=== PATIENT | female | born 1955 | race Caucasian/White ===

== ENCOUNTER 2018-12-28 17:01 | Inpatient (IN) | payer OTHER ==
[2018-12-28] MEDS: SODIUM CHLORIDE 0.9% 1L BAG IV* (17:39)
[2018-12-28] MEDS: ONDANSETRON 4 MG INJ IV (17:43)
[2018-12-28] MEDS: morphine 4 MG/ML VIAL IV (17:43)
[2018-12-28] MEDS: KETOROLAC 15 MG INJ IV (17:43)
[2018-12-28] MEDS: ACETAMINOPHEN 325 MG TAB PO (17:45)
[2018-12-28] MEDS: CEFTRIAXONE 1 GM/50 ML (PMX) 50 ML IVPB (17:45)
[2018-12-28 17:47] LABS: WHITE BLOOD COUNT 8.5 10^3/ul (4.8-10.8)
[2018-12-28 17:47] LABS: HEMATOCRIT 38.3 % (37.0-47.0); HEMOGLOBIN 11.9 g/dl (12.0-16.0); MEAN CORPUSCULAR HEMOGLOBIN 23.2 pg (29.0-33.0); MEAN CORPUSCULAR HGB CONC 31.1 g/dl (32.0-37.0); MEAN CORPUSCULAR VOLUME 74.5 fl (82.0-101.0); MEAN PLATELET VOLUME 10.3 fl (7.4-10.4); PLATELET COUNT 354 10^3/UL (140-415); RED BLOOD COUNT 5.14 10^6/ul (4.20-5.40)
[2018-12-28 17:59] LABS: ADD MAN DIFF? YES; POSITIVE DIFF @See below
[2018-12-28 18:09] LABS: ALANINE AMINOTRANSFERASE 17 IU/L (13-69); ALBUMIN 3.8 g/dl (3.3-4.9); ALKALINE PHOSPHATASE 231 IU/L (42-121); ANION GAP 12 (5-13); ASPARTATE AMINO TRANSFERASE 38 IU/L (15-46); BLOOD UREA NITROGEN 14 mg/dl (7-20); CALCIUM 9.1 mg/dl (8.4-10.2); CARBON DIOXIDE 22 mmol/L (21-31); CHLORIDE 100 mmol/L (97-110); CREATININE 0.97 mg/dl (0.44-1.00); Estimated GFR 58 mL/min (>60); GLUCOSE 151 mg/dl (70-220); INR 1.08; POTASSIUM 4.3 mmol/L (3.5-5.1); PROTIME 14.1 Sec (11.9-14.9); PT RATIO 1.1; SODIUM 134 mmol/L (135-144); TOTAL PROTEIN 7.6 g/dl (6.1-8.1)
[2018-12-28 18:10] LABS: PARTIAL THROMBOPLASTIN TIME 28.2 Sec (23.0-35.0)
[2018-12-28 18:18] LABS: TROPONIN-I < 0.012 ng/ml (0.000-0.120)
[2018-12-28 18:38] LABS: ANISOCYTOSIS 2+ (0-0); BAND NEUTROPHILS #M 1.2 10^3/ul (0.0-0.6); BAND NEUTROPHILS % (M) 15 % (0-4); LYMPHOCYTES #M 0.6 10^3/ul (0.8-2.9); LYMPHOCYTES % (M) 8 % (15-51); MICROCYTOSIS 2+ (0-0); PLATELET ESTIMATE NORMAL; POLYCHROMASIA 1+ (0-0); PROMYELOCYTES % (M) 1 % (0-0); SEG NEUT #M 6.6 10^3/ul (1.6-7.5); SEGMENTED NEUTROPHILS (M) % 76 % (39-77)
[2018-12-28] MEDS ORDERED: ONDANSETRON 4 MG INJ IV ×2 (19:00→20:00)
[2018-12-28] MEDS: SOD CHLORIDE 0.9% 1,000 ML IV (19:45)
[2018-12-28] MEDS ORDERED: ZOLPIDEM 5 MG TAB PO (20:00)
[2018-12-28 20:30] LABS: LACTIC ACID 0.9 mmol/L (0.5-2.0)
[2018-12-28] MEDS: LEVOFLOXACIN 500 MG TAB PO (21:20)
[2018-12-29] MEDS: ACETAMINOPHEN 325 MG TAB PO ×4 (00:21→22:24)
[2018-12-29 06:26] LABS: ADD UMIC YES; UR AMORPHOUS CRYSTAL FEW /HPF (NONE SEEN); UR ASCORBIC ACID NEGATIVE (NEGATIVE); UR BACTERIA FEW /HPF (NONE SEEN); UR BILIRUBIN (Dip) NEGATIVE (NEGATIVE); UR BLOOD (Dip) 2+ mg/dL (NEGATIVE); UR CLARITY CLOUDY (CLEAR); UR COLOR YELLOW (YELLOW); UR GLUCOSE (Dip) NEGATIVE (NEGATIVE); UR KETONES (Dip) NEGATIVE (NEGATIVE); UR LEUKOCYTE ESTERASE (Dip) 3+ Leu/ul (NEGATIVE); UR NITRITE (Dip) NEGATIVE (NEGATIVE); UR NONSQUAMOUS EPITHELIAL CELL 2 /HPF (NONE SEEN); UR RBC 23 /HPF (0-5); UR SPECIFIC GRAVITY (Dip) 1.013 (1.003-1.030); UR SQUAMOUS EPITHELIAL CELL MANY /HPF (FEW); UR TOTAL PROTEIN (Dip) NEGATIVE (NEGATIVE); UR UROBILINOGEN (Dip) 1+ mg/dL (NEGATIVE); UR WBC 156 /HPF (0-5)
[2018-12-29 08:01] LABS: WHITE BLOOD COUNT 14.5 10^3/ul (4.8-10.8)
[2018-12-29 08:01] LABS: HEMATOCRIT 31.7 % (37.0-47.0); HEMOGLOBIN 9.7 g/dl (12.0-16.0); MEAN CORPUSCULAR HEMOGLOBIN 23.3 pg (29.0-33.0); MEAN CORPUSCULAR HGB CONC 30.6 g/dl (32.0-37.0); MEAN CORPUSCULAR VOLUME 76.2 fl (82.0-101.0); MEAN PLATELET VOLUME 10.9 fl (7.4-10.4); PLATELET COUNT 318 10^3/UL (140-415); RED BLOOD COUNT 4.16 10^6/ul (4.20-5.40); RED CELL DISTRIBUTION WIDTH 17.5 % (11.5-14.5)
[2018-12-29 08:22] LABS: ANION GAP 6 (5-13); BLOOD UREA NITROGEN 14 mg/dl (7-20); CALCIUM 8.6 mg/dl (8.4-10.2); CARBON DIOXIDE 25 mmol/L (21-31); CHLORIDE 106 mmol/L (97-110); CREATININE 1.01 mg/dl (0.44-1.00); Estimated GFR 56 mL/min (>60); GLUCOSE 96 mg/dl (70-220); POTASSIUM 4.5 mmol/L (3.5-5.1); SODIUM 137 mmol/L (135-144)
[2018-12-29 08:42] LABS: ADD MAN DIFF? YES; POSITIVE DIFF @See below
[2018-12-29] MEDS: morphine 2 MG INJ IV ×3 (09:15→17:08)
[2018-12-29 10:14] LABS: ANISOCYTOSIS 1+ (0-0); BAND NEUTROPHILS #M 3.7 10^3/ul (0.0-0.6); BAND NEUTROPHILS % (M) 26 % (0-4); BASOPHIL #M 0.1 10^3/ul (0.0-0.0); BASOPHILS % (M) 1 % (0-2); BURR CELLS 1+ (0-0); EOSINOPHILS % (M) 1 % (0-7); GIANT THROMBO% (M) 1 % (0-0); LYMPHOCYTES #M 0.4 10^3/ul (0.8-2.9); LYMPHOCYTES % (M) 3 % (15-51); MICROCYTOSIS 1+ (0-0); MONOCYTE #M 0.4 10^3/ul (0.3-0.9); MONOCYTES % (M) 3 % (0-11); OVALOCYTES 1+ (0-0); PLATELET ESTIMATE NORMAL; POIKILOCYTOSIS 1+ (0-0); POLYCHROMASIA 3+ (0-0); SEG NEUT #M 10.1 10^3/ul (1.6-7.5); SEGMENTED NEUTROPHILS (M) % 66 % (39-77); SMUDGE%M 5 % (0-0)
[2018-12-29] MEDS ORDERED: POLYETHYLENE GLYCOL 3350 119 GM POWDER PO (16:30)
[2018-12-29] MEDS: POLYETHYLENE GLYCOL 17 GM PACKET PO (17:07)
[2018-12-29] MEDS: LEVOFLOXACIN 500 MG TAB PO (20:36)
[2018-12-29] MEDS: SOD CHLORIDE 0.9% 1,000 ML IV (20:36)
[2018-12-29] MEDS: AZTREONAM 2 GM in SOD CHLORIDE 0.9% 100 ML IVPB (20:36)
[2018-12-29] MEDS: FAMOTIDINE 20 MG TAB PO (20:37)
[2018-12-29] MEDS: morphine 4 MG/ML VIAL IV (20:37)
[2018-12-30] MEDS: ACETAMINOPHEN 325 MG TAB PO ×3 (03:35→21:59)
[2018-12-30] MEDS: SOD CHLORIDE 0.9% 1,000 ML IV ×2 (05:33→08:33)
[2018-12-30 06:47] LABS: WHITE BLOOD COUNT 13.9 10^3/ul (4.8-10.8)
[2018-12-30 06:47] LABS: ABNORMAL IP MESSAGE 1; HEMATOCRIT 30.6 % (37.0-47.0); HEMOGLOBIN 9.4 g/dl (12.0-16.0); MEAN CORPUSCULAR HEMOGLOBIN 23.6 pg (29.0-33.0); MEAN CORPUSCULAR HGB CONC 30.7 g/dl (32.0-37.0); MEAN CORPUSCULAR VOLUME 76.7 fl (82.0-101.0); MEAN PLATELET VOLUME 10.5 fl (7.4-10.4); PLATELET COUNT 333 10^3/UL (140-415); RED BLOOD COUNT 3.99 10^6/ul (4.20-5.40); RED CELL DISTRIBUTION WIDTH 17.5 % (11.5-14.5)
[2018-12-30 06:49] LABS: POSITIVE DIFF @See below
[2018-12-30 06:50] LABS: ADD MAN DIFF? YES
[2018-12-30 07:06] LABS: PHOSPHORUS 3.7 mg/dl (2.5-4.9)
[2018-12-30 07:09] LABS: ALANINE AMINOTRANSFERASE 20 IU/L (13-69); ALBUMIN 2.8 g/dl (3.3-4.9); ALKALINE PHOSPHATASE 146 IU/L (42-121); ANION GAP 4 (5-13); ASPARTATE AMINO TRANSFERASE 21 IU/L (15-46); BILIRUBIN,INDIRECT 0.5 mg/dl (0-1.1); BILIRUBIN,TOTAL 0.5 mg/dl (0.2-1.3); BLOOD UREA NITROGEN 11 mg/dl (7-20); CALCIUM 8.3 mg/dl (8.4-10.2); CARBON DIOXIDE 25 mmol/L (21-31); CHLORIDE 109 mmol/L (97-110); CREATININE 0.92 mg/dl (0.44-1.00); Estimated GFR > 60 mL/min (>60); GLUCOSE 109 mg/dl (70-220); POTASSIUM 4.3 mmol/L (3.5-5.1); SODIUM 138 mmol/L (135-144); TOTAL PROTEIN 5.9 g/dl (6.1-8.1)
[2018-12-30] MEDS: POLYETHYLENE GLYCOL 17 GM PACKET PO (08:32)
[2018-12-30] MEDS: AZTREONAM 2 GM in SOD CHLORIDE 0.9% 100 ML IVPB ×2 (08:33→22:00)
[2018-12-30] MEDS: morphine 2 MG INJ IV (11:39)
[2018-12-30 13:07] LABS: ANISOCYTOSIS 1+ (0-0); BAND NEUTROPHILS #M 0.6 10^3/ul (0.0-0.6); BAND NEUTROPHILS % (M) 5 % (0-4); EOSINOPHILS % (M) 1 % (0-7); GIANT THROMBO% (M) 1 % (0-0); LYMPHOCYTES #M 1.6 10^3/ul (0.8-2.9); LYMPHOCYTES % (M) 12 % (15-51); MICROCYTOSIS 1+ (0-0); MONOCYTE #M 0.5 10^3/ul (0.3-0.9); MONOCYTES % (M) 4 % (0-11); PLATELET ESTIMATE NORMAL; POLYCHROMASIA 1+ (0-0); SEG NEUT #M 10.9 10^3/ul (1.6-7.5); SEGMENTED NEUTROPHILS (M) % 78 % (39-77); SMUDGE%M 10 % (0-0)
[2018-12-30] MEDS: LEVOFLOXACIN 500 MG TAB PO (21:59)
[2018-12-30] MEDS: FAMOTIDINE 20 MG TAB PO (21:59)
[2018-12-31] MEDS: SOD CHLORIDE 0.9% 1,000 ML IV ×3 (01:50→20:33)
[2018-12-31] MEDS: morphine 4 MG/ML VIAL IV (05:31)
[2018-12-31] MEDS: ACETAMINOPHEN 325 MG TAB PO ×2 (06:32→17:58)
[2018-12-31] MEDS: AZTREONAM 2 GM in SOD CHLORIDE 0.9% 100 ML IVPB ×2 (08:52→20:33)
[2018-12-31] MEDS: POLYETHYLENE GLYCOL 17 GM PACKET PO (08:52)
[2018-12-31] MEDS: SENNA TAB PO ×2 (17:00→20:33)
[2018-12-31] MEDS: FAMOTIDINE 20 MG TAB PO (20:33)
[2018-12-31] MEDS: LEVOFLOXACIN 500 MG TAB PO (20:33)
[2019-01-01] MEDS: ACETAMINOPHEN 325 MG TAB PO (01:38)
[2019-01-01 06:20] LABS: ADD MAN DIFF? NO
[2019-01-01] MEDS: SOD CHLORIDE 0.9% 1,000 ML IV ×3 (06:20→21:31)
[2019-01-01 06:27] LABS: BASOPHILS % 0.3 % (0.0-2.0); EOSINOPHILS # 0.3 10^3/ul (0.0-0.5); EOSINOPHILS % 2.3 % (0.0-7.0); HEMATOCRIT 29.1 % (37.0-47.0); HEMOGLOBIN 8.8 g/dl (12.0-16.0); LYMPHOCYTES # 1.9 10^3/ul (0.8-2.9); MEAN CORPUSCULAR HEMOGLOBIN 23.2 pg (29.0-33.0); MEAN CORPUSCULAR HGB CONC 30.2 g/dl (32.0-37.0); MEAN CORPUSCULAR VOLUME 76.6 fl (82.0-101.0); MEAN PLATELET VOLUME 10.2 fl (7.4-10.4); MONOCYTE # 1.5 10^3/ul (0.3-0.9); MONOCYTES % 12.8 % (0.0-11.0); NEUTROPHILS % 67.8 % (39.0-77.0); PLATELET COUNT 393 10^3/UL (140-415); RED CELL DISTRIBUTION WIDTH 17.5 % (11.5-14.5)
[2019-01-01 06:27] LABS: WHITE BLOOD COUNT 11.8 10^3/ul (4.8-10.8)
[2019-01-01 06:49] LABS: ANION GAP 7 (5-13); BLOOD UREA NITROGEN 9 mg/dl (7-20); CALCIUM 8.6 mg/dl (8.4-10.2); CARBON DIOXIDE 23 mmol/L (21-31); CHLORIDE 110 mmol/L (97-110); CREATININE 0.85 mg/dl (0.44-1.00); Estimated GFR > 60 mL/min (>60); GLUCOSE 98 mg/dl (70-220); POTASSIUM 4.2 mmol/L (3.5-5.1); SODIUM 140 mmol/L (135-144)
[2019-01-01] MEDS: POLYETHYLENE GLYCOL 17 GM PACKET PO (08:43)
[2019-01-01] MEDS: SENNA TAB PO ×2 (08:43→21:00)
[2019-01-01] MEDS: AZTREONAM 2 GM in SOD CHLORIDE 0.9% 100 ML IVPB (08:43)
[2019-01-01] MEDS: MEROPENEM 1 GM/50ML(PMX) 50 ML IVPB ×2 (15:06→21:31)
[2019-01-01] MEDS: FAMOTIDINE 20 MG TAB PO (21:30)
[2019-01-02] MEDS: MEROPENEM 1 GM/50ML(PMX) 50 ML IVPB (05:58)
[2019-01-02] MEDS: SOD CHLORIDE 0.9% 1,000 ML IV (05:58)
[2019-01-02] MEDS: POLYETHYLENE GLYCOL 17 GM PACKET PO (08:40)
[2019-01-02] MEDS: SENNA TAB PO (08:40)
== END 2019-01-02 14:10 | disposition home health service (06) | DRG 872 ==
LOC: TEL 01-01 00:02 → E/R 17:01 → TEL 18:50
PROC: 02HV33Z Insertion of Infusion Device into Superior Vena Cava, Percutaneous Approach (ICD-10-PCS; principal; 2019-01-01)
DX: A41.51 Sepsis due to Escherichia coli [E. coli] (principal); N13.6 Pyonephrosis; N39.0 Urinary tract infection, site not specified; R65.20 Severe sepsis without septic shock; B96.20 Unspecified Escherichia coli [E. coli] as the cause of diseases classified elsewhere; K76.0 Fatty (change of) liver, not elsewhere classified; Z98.84 Bariatric surgery status
CPT/HCPCS: 36415; 36569; 71045; 74018; 74176; 76937; 80048; 80053; 81001; 82355; 83605; 83735; 84100; 84484; 85025; 85610; 85730; 87040-91; 87086; 93005; 96374; 96375; 99285-25